=== PATIENT | male | born 1990 | race Two or more races ===

== ENCOUNTER 2021-06-22 09:35 | Emergency (ER) | payer OTHER ==
[~2021-06-22] VITALS: Ht 160 cm; Wt 62.6 kg
[2021-06-22] MEDS ORDERED: KETO10TA2 PO (12:43)
== END 2021-06-22 12:48 | disposition home or self-care (01) ==
LOC: ER 09:35
DX: R07.89 Other chest pain (principal)

== ENCOUNTER 2024-06-22 14:31 | Emergency (ER) | payer OTHER ==
[~2024-06-22] VITALS: Ht 177.8 cm; Wt 79.4 kg
[~2024-06-22 14:31] MED LIST: KETO10TA2 PO
[2024-06-22] MEDS ORDERED: CEFTRIAXONE SODIUM 1,000 MG VIAL IM ONE (17:00)
[2024-06-22] MEDS ORDERED: KETOROLAC TROMETHAMINE 30 MG VIAL IM ONE (17:00)
[2024-06-22] MEDS ORDERED: DUI500 PO (17:21)
== END 2024-06-22 17:47 | disposition home or self-care (01) ==
LOC: ER 14:33
DX: S90.512A Abrasion, left ankle, initial encounter (principal); X58.XXXA Exposure to other specified factors, initial encounter; Y93.89 Activity, other specified; Y92.89 Other specified places as the place of occurrence of the external cause; Y99.9 Unspecified external cause status